=== PATIENT | female | born 1975 | race Caucasian/White ===

== ENCOUNTER 2024-09-15 14:52 | Emergency (ER) | payer OTHER, SELFPAY ==
[2024-09-15 15:07] VITALS: BP 93/54; PULSE 93; TEMP 36.9; O2SAT 100; BMI 21.9
--- NOTE | 2024-09-15 16:59 | ED.GENADUL1 ---
HPI HPI - General Adult General Chief complaint: Back Pain/Injury Stated complaint: R LEG PAIN, BACK PAIN Time Seen by Provider: 09/15/24 16:40 Source: patient Mode of arrival: walk-in History of Present Illness HPI narrative: 49-year-old female presents for pain in her right leg. She has had this pain for about 2 weeks and there is no injury. She went to another hospital emergency department and she states they did not do anything except give her Flexeril and told her to go home. It starts in the posterior lateral aspect of the right leg and goes down the back of her leg all the way to her foot. She has no history of sciatica or symptoms like this. The pain is moderate to severe at times. Related Data Home Medications ?Medication ?Instructions ?Recorded ?Confirmed apixaban 5 mg tablet (Eliquis) mg 09/15/24 atorvastatin 40 mg tablet mg 09/15/24 buspirone 30 mg tablet mg 09/15/24 cariprazine 1.5 mg capsule mg 09/15/24 (Vraylar) cyanocobalamin (vitamin B-12) mcg 09/15/24 1,000 mcg/mL injection solution duloxetine 60 mg capsule,delayed mg PO 09/15/24 release hydroxyzine pamoate 25 mg capsule mg 09/15/24 lidocaine 5 % topical patch patch 09/15/24 Previous Rx's ?Medication ?Instructions ?Recorded hydrocodone 5 mg-acetaminophen 325 1 tab PO Q6H PRN pain 5 days #20 09/15/24 mg tablet tabs prednisone 10 mg tablet See Rx Instructions .Route 09/15/24 .COMPLEX #30 tabs Allergies Allergy/AdvReac Type Severity Reaction Status Date / Time balsalazide Allergy Anaphylaxis Verified 09/15/24 15:16 pantoprazole Allergy Unknown Verified 09/15/24 15:16 povidone-iodine (From AdvReac Unknown Verified 09/15/24 15:07 Betadine) Opioid HPI Opioid Management Most Recent Opioid Data: No Data to Display Review of Systems ROS Narrative A ten point review of systems is negative except as noted above. PFSH PFSH Social History Little interest or pleasure in doing things: several days Feeling down, depressed, or hopeless: several days Exam Narrative Exam Narrative: Nurses note and vital signs reviewed and patient is not hypoxic. General: The patient appears well and in no apparent distress. Patient is resting comfortably on cart. Skin: Warm, dry, no pallor noted. There is no rash noted. Head: Normocephalic, atraumatic Eye: Normal conjunctiva, no drainage Ears, Nose, Mouth, and Throat: oral mucosa is moist. Nares patent. Cardiovascular: Regular Rate and Rhythm Respiratory: Patient is in no distress, no accessory muscle use, lungs are clear to auscultation, no wheezing, rales or rhonchi Back: non-tender, no CVA tenderness bilaterally to percussion. GI: Soft and nontender Musculoskeletal: The right leg is examined. There is no skin discoloration. Capillary refill is brisk in her foot. No bruising rash ankle edema present she has had previous left BKA. Neurological: A&O, normal speech Psychiatric: Cooperative Constitutional Vital Signs, click to edit/add: Last Vital Signs Temp 98.4 F 09/15/24 15:07 Pulse 93 H 09/15/24 15:07 Resp 16 09/15/24 15:07 BP 93/54 09/15/24 15:07 Pulse Ox 100 09/15/24 15:07 O2 Del Method Room Air 09/15/24 15:07 Course Vital Signs Vital signs: Vital Signs Temperature 98.4 F 09/15/24 15:07 Pulse Rate 93 H 09/15/24 15:07 Respiratory Rate 16 09/15/24 15:07 Blood Pressure 93/54 09/15/24 15:07 Pulse Oximetry 100 09/15/24 15:07 Oxygen Delivery Method Room Air 09/15/24 15:07 Temperature 98.4 F 09/15/24 15:07 Pulse Rate 93 H 09/15/24 15:07 Respiratory Rate 16 09/15/24 15:07 Blood Pressure 93/54 09/15/24 15:07 Pulse Oximetry 100 09/15/24 15:07 Oxygen Delivery Method Room Air 09/15/24 15:07 Medical Decision Making MDM Narrative Medical decision making narrative: CT scan findings are discussed with the patient. She does not have a PCP but was given referral list. She is provided prescriptions for prednisone and [place]. Treatment diagnosis and follow-up were discussed with the patient. I have no clinical suspicion of arterial disease in this leg. Differential Diagnosis Differential Diagnosis: Sciatica, muscle strain, herniated disc, lumbar fracture Imaging Data CT lumbar spine: Radiologist's impression: ITS Impressions Lumbar Spine CT 09/15/24 17:13 IMPRESSION: At L5-S1, a small posterior central disc protrusion. No central spinal stenosis or neural foraminal stenosis. Cortical scars in the visualized right kidney. Cholelithiasis. Electronically authenticated by: SHIRA GAONA Date: 09/15/2024 18:03 Discharge Plan Discharge Chief Complaint: Back Pain/Injury Clinical Impression: Sciatica Patient Disposition: Home, Self-Care Time of Disposition Decision: 18:27 Condition: Good Mode of Transportation: Private Vehicle Prescriptions / Home Meds: New hydrocodone-acetaminophen 5-325 mg tablet 1 tab PO Q6H PRN (Reason: pain) 5 Days Qty: 20 0RF prednisone 10 mg tablet See Rx Instructions .ROUTE .COMPLEX Qty: 30 0RF Rx Instructions: 4 by mouth daily for three days then 3 by mouth daily for three days then 2 by mouth daily for three days then 1 by mouth daily for three days No Action atorvastatin 40 mg tablet cyanocobalamin (vitamin B-12) 1,000 mcg/mL solution buspirone 30 mg tablet lidocaine 5 % adhesive patch,medicated hydroxyzine pamoate 25 mg capsule duloxetine 60 mg capsule,delayed release(DR/EC) PO Eliquis 5 mg tablet Vraylar 1.5 mg capsule Print Language: Kiswahili Instructions: Sciatica (ED) Additional Instructions: See list of physicians Referrals: Physician,Non-Staff, MD [Primary Care Provider] - 1 week
[2024-09-15] MEDS: MORPHINE SULFATE 4 MG/ML VIAL 10 MG IM (17:00)
--- NOTE | 2024-09-15 17:13 | CT_ITS ---
[facility] [id number] Patient Name: JUDITH ACOSTA MRN: [id number] date: 1975 Sex: F Assigned Patient Location: ER Current Patient Location: ER Accession/Order Number: [id number] Exam Date: 09/15/2024 17:08 Report Date: 09/15/2024 18:03 At the request of: ISAAC ORTIZ Procedure: CT lumbar spine wo con EXAM: CT lumbar spine wo con HISTORY: Right leg pain. COMPARISON: None. TECHNIQUE: Axial CT scans of the lumbar spine were obtained without contrast. MPR images were obtained. Dose reduction techniques were achieved by using: automated exposure control and/or adjustment of mA and /or kV according to patient size and/or use of iterative reconstruction technique. FINDINGS: Disc heights are preserved. Normal lumbar alignment. A small posterior central disc protrusion at L5-S1. No central spinal stenosis or neural foraminal stenosis. No spondylolysis or spondylolisthesis. No destructive bony lesions. SI joints are intact. The visualized retroperitoneum shows no adenopathy. A filter in the inferior vena cava is present. Dense in the right and left common iliac arteries are present. This patient has aortobifem bypass. Cortical scars in the visualized right kidney. Cholelithiasis. CT/CT lumbar spine wo con IMPRESSION: At L5-S1, a small posterior central disc protrusion. No central spinal stenosis or neural foraminal stenosis. Cortical scars in the visualized right kidney. Cholelithiasis. Electronically authenticated by: SHIRA GAONA Date: 09/15/2024 18:03
[2024-09-15 18:34] VITALS: BP 126/88; PULSE 86; TEMP 36.7; O2SAT 98
== END 2024-09-15 18:36 | disposition home or self-care (01) ==
PROVIDERS: Emergency Provider Emergency Medicine
DX: M54.31 Sciatica, right side (principal)
CPT/HCPCS: 72131; 96372; 99285; J2270